=== PATIENT | male | born 1985 | race Caucasian/White ===

== ENCOUNTER 2016-03-15 16:26 | Emergency (ER) | payer SELFPAY ==
[2016-03-15] MEDS ORDERED: Lidocaine 2%-Epinephrine 1:100,000 20ml vial INF ONE (16:39)
[2016-03-15 16:43] VITALS: BP 124/65; PULSE 102; TEMP 97.9; BMI 30.4
--- NOTE | 2016-03-15 16:56 | EDPRACDOC ---
- General Information Stated Complaint: calf spider bite Time Seen by Provider: 03/15/16 16:30 Information Source: Patient Mode of Arrival:: Car Home Medications: Home Medications Cephalexin Monohydrate [Keflex] 500 mg PO Q6H #28 cap 02/05/16 Ibuprofen 600 mg PO TID #20 tablet 02/05/16 Cyclobenzaprine HCl [Flexeril] 10 mg PO TID PRN #20 tablet 02/13/16 Ketoprofen 50 mg PO BID PRN #20 capsule 02/13/16 Meloxicam 7.5 mg PO BID #20 tablet 03/15/16 Sulfamethoxazole/Trimethoprim [Bactrim Ds Tablet] 1 tab PO BID #20 tab 03/15/16 Allergies/Adverse Reactions: Allergies Allergy/AdvReac Type Severity Reaction Status Date / Time No Known Allergies Allergy Verified 02/13/16 00:43 - History of Present Illness Onset: 3-4 DAYS HPI: PT C/O ABSCESS TO RIGHT POSTERIOR CALF RED SWOLLEN AND PAINFUL. Location: Reports: Extremity (RIGHT POTERIOR CALF.) Relevent History Of: Reports: None Prior Abscess: Reports: Different Pain: Reports: Moderate Quality: Reports: Painful, Red Associated Signs & Symptoms: Reports: None ED Past Medical History - History Reviewed Yes Nurses notes reviewed and agree except as marked Travel Outside of [place] in the Last 3 Months?: No No Past Medical History: Yes Patient has no past medical history - Patient Medical History Psychological History: Denies: Depression - Social Medical History Smoking Status: Heavy tobacco smoker (5 or more cigarettes/day or daily pipe/ cigar) ETOH: None Substance Abuse: None Lives With: Other Lives In: Home EDM Review of Systems - Review of Systems ROS Negative Except as Marked: Yes All systems reviewed and were negative except as marked Constitutional: No Symptoms Reported. negative: Fever, Chills, Weakness, Fatigue, Loss of Appetite Eyes: No Symptoms Reported. negative: Redness, Blurred Vision, Double Vision, Discharge, Pain, Light Sensitive, Photophobia Ears: No Symptoms Reported. negative: Pain, Hearing Loss, Drainage, Ear Pulling Throat: No Symptoms Reported. negative: Pain, Swelling Nose: No Symptoms Reported. negative: Congestion, Bleeding, Discharge, Injection, Swelling, Deformity, Ecchymosis, Tender, Abrasion, Laceration Mouth: No Symptoms Reported. negative: Pain, Drooling Respiratory: No Symptoms Reported. negative: Cough, Brassy Cough, Barky Cough, Shortness of Breath, Wheezing, Hemoptysis Cardiovascular: No Symptoms Reported. negative: Chest Pain, Palpitations, Syncope, Edema, Orthopnea, PND, Skin Mottling, Cyanosis Gastrointestinal: No Symptoms Reported. negative: Pain, Constipation, Nausea, Vomiting, Diarrhea, Melena, Formula Intolerance Genitourinary: No Symptoms Reported. negative: Dysuria, Hematuria, Frequency, Discharge, Bleeding, Testicular Pain, Neurological: No Symptoms Reported. negative: Headache, Dizziness, Seizure, Numbness, Weakness, Speech Difficulty, Gait Difficulty Musculoskeletal: No Symptoms Reported. negative: Neck, Chestwall, Ribs, Back, Shoulder, Arm, Elbow, Forearm, Wrist, Hand, Pelvis, Hip, Femur, Knee, Leg, Ankle , Foot Integumentary: Other (ABSCESS POSTERIOR LEFT CALF). negative: Bruising, Itching , Rash, Wound Allergic/Immunologic: No Symptoms Reported. negative: Hives, Itching Hematologic: No Symptoms Reported. negative: Lymphadenopathy, Easy Bruising, Easy Bleeding Endocrine: No Symptoms Reported. negative: Weight Gain, Weight Loss Psychiatric: No Symptoms Reported. negative: Anxiety, Depression, Hallucinations, Insomnia, Suicidal - Physical Exam Constitutional: No apparent distress, Alert (Awake) Oriented to: Time, Person, Place Last recorded Vital Signs: Oxygen Pulse Oxygen Saturation O2 Device Oxygen Flow Rate Fraction of Inspired Oxygen ( FIO2) - HEENT Head: Normal ( normocephalic) Eye Exam: Normal (PERRL, EOMI, Sclera white) Oropharynx: Normal (Pharynx:Moist without exudate,Gums-no swelling) Tympanic Membrane: Normal ENT EAC: Normal TMJ: Normal Nose: No Symptoms Reported (septum midline) Neck: Normal (FROM, trachea at midline) - Respiratory/Cardiovascular Respiratory: Normal - CTA (BBS clear to auscultation without adventitious sounds ) Cardiovascular: Normal (RRR without murmur, gallop or rub) - GI Auscultation: Normal (NABS) Palpation: Normal (Soft,No rebound or guarding, non distended) Tenderness: Non tender Arevalo's Sign: Negative - Musculoskeletal Back: Normal (Non-Tender) Extremities: Normal (Normal tone, Pulses 2+ No cyanosis or edema, FROM) - Integumentary Skin: Normal, Warm, Dry, Other (ABSCESS LT POSTERIOR CALF) Lymphatics: Normal (no adenopathy) - Neurologic Memory Impaired: Normal Motor Function: Normal (Normal tone, Pulses 2+ No cyanosis or edema, FROM) Cranial Nerve: Normal (CN II-X11 intact sensation, strength 5/5) Cerebellar: Normal Mood Description: Normal Perception: Normal ED Abscess/Mass Exam - Integumentary Skin: Normal Mass: Red, Tender, Fluctuant, Extensive Cellulitis Lymphatics: Normal ED Procedures - Incision and Drainage Informed of risks, benefits and alternatives described.: Yes Informed Consent Signed: Verbal Indication: Painful Mass Anesthetic: Lidocaine, with Epi Prep: Betadine Blade Size: 11 Incised Site drained: Reports: Blood, Pus Incised site was: Not irrigated, Not Packed with Iodoform - Differential Diagnosis Abscess, Cellulitis Decision Time to Discharge: 17:03 - Departure Disposition: Home Condition: Stable Final Diagnosis: Abscess Instructions: Abscess (ED) Education/Counseling Given To: Patient Education/Counseling Given Regarding: Diagnosis, Treatment, Prognosis, Follow Up Referrals: None,No Provider [Primary Care Provider] - One Week Prescriptions: Meloxicam 7.5 mg PO BID #20 tablet Sulfamethoxazole/Trimethoprim [Bactrim Ds Tablet] 1 tab PO BID #20 tab Additional Instructions: RETURN IN 2 DAYS FOR WOUND CHECK OR SOONER FOR WORSE OR DIFFERENT SYMPTOMS.
== END 2016-03-15 17:25 | disposition home or self-care (01) ==
LOC: EDMC 16:26
DX: L02.415 Cutaneous abscess of right lower limb (principal)
CPT/HCPCS: 10060; 87070; 87075; 87077; 87186; 99282; J3490

== ENCOUNTER 2016-03-18 17:42 | Emergency (ER) | payer SELFPAY ==
[2016-03-18 17:54] VITALS: BP 134/72; PULSE 80; TEMP 97.8
[2016-03-18 17:55] VITALS: BMI 30.9
--- NOTE | 2016-03-18 18:05 | EDPRACDOC ---
- General Information Stated Complaint: WOUND RECHECK Time Seen by Provider: 03/18/16 17:58 Home Medications: Home Medications Cephalexin Monohydrate [Keflex] 500 mg PO Q6H #28 cap 02/05/16 Ibuprofen 600 mg PO TID #20 tablet 02/05/16 Cyclobenzaprine HCl [Flexeril] 10 mg PO TID PRN #20 tablet 02/13/16 Ketoprofen 50 mg PO BID PRN #20 capsule 02/13/16 Meloxicam 7.5 mg PO BID #20 tablet 03/15/16 Sulfamethoxazole/Trimethoprim [Bactrim Ds Tablet] 1 tab PO BID #20 tab 03/15/16 Allergies/Adverse Reactions: Allergies Allergy/AdvReac Type Severity Reaction Status Date / Time No Known Allergies Allergy Verified 02/13/16 00:43 - History of Present Illness Onset: 4 DAYS Wound Location: RIGHT POSTERIOR LEG Wound Discharge: Clear Previously Treated In: [facility] Current Wound Treatment: Antibiotics, Other (I&D) Associated Signs and Symptoms: None ED Past Medical History - History Reviewed Yes Nurses notes reviewed and agree except as marked - Patient Medical History Psychological History: Denies: Depression - Social Medical History Smoking Status: Never smoker EDM Review of Systems - Review of Systems ROS Negative Except as Marked: Yes All systems reviewed and were negative except as marked Constitutional: No Symptoms Reported Respiratory: No Symptoms Reported Cardiovascular: No Symptoms Reported Gastrointestinal: No Symptoms Reported Neurological: No Symptoms Reported Musculoskeletal: Leg Integumentary: Wound - Physical Exam Constitutional: Alert (Awake), No apparent distress Oriented to: Time, Person, Place Last recorded Vital Signs: Last Vital Signs Temp 97.8 F 03/18/16 17:54 Pulse 80 03/18/16 17:54 Resp 20 03/18/16 17:54 BP 134/72 03/18/16 17:54 Pulse Ox 95 03/18/16 17:54 Oxygen Pulse Oxygen Saturation 95 O2 Device Oxygen Flow Rate Fraction of Inspired Oxygen ( FIO2) - HEENT Head: Normal Eye Exam: Normal Neck: Normal, Denies Pain, Midline - Respiratory/Cardiovascular Respiratory: Normal - CTA Cardiovascular: Normal - GI Palpation: Normal Tenderness: Non tender - Musculoskeletal Back: Normal Extremities: Other (NOTED WELL HEALING RECENT I&D TO RIGHT POSTERIOR THIGH; CELLULITIS IS MUCH LESS COMPARED TO THE OLD BODY MARKER) - Integumentary Skin: Normal Lymphatics: Normal - Neurologic Cerebellar: Normal Mood Description: Normal Thought: Coherent Perception: Normal ED Wound Check Exam - Wound Detail Wound Location: RIGHT POSTERIOR THIGH Healing: Well Discharge: None Erythema: Localized to Wound Edges Decision Time to Discharge: 18:05 - Departure Disposition: Home Condition: Good Final Diagnosis: Wound check, abscess Instructions: MRSA (Methicillin Resistant Staphylococcus Aureus) (ED) Education/Counseling Given To: Patient Education/Counseling Given Regarding: Diagnosis, Treatment, Follow Up Referrals: Jayme Tejeda MD [Primary Care Provider] - One Week Additional Instructions: CONTINUE BACTRIM REGIMEN. HIBICLENS SOAP for treatment of MRSA Use as a body wash for one week. Repeat every 4 months. If a sore develops, use the Hibiclens soap to clean it daily until it goes away. Hibiclens is in a teal colored bottle and is over the counter at most drug stores ([facility], etc)
== END 2016-03-18 18:06 | disposition home or self-care (01) ==
LOC: ED 17:42
DX: L02.415 Cutaneous abscess of right lower limb (principal)
CPT/HCPCS: 99282

== ENCOUNTER 2016-03-26 14:45 | Emergency (ER) | payer SELFPAY ==
[2016-03-26 14:57] VITALS: BMI 31.0
[2016-03-26] MEDS ORDERED: CLINDAMYCIN 150 MG CAP PO ONE (15:21)
--- NOTE | 2016-03-26 15:24 | EDPRACDOC ---
- General Information Chief Complaint: Wound Stated Complaint: WOUND Time Seen by Provider: 03/26/16 14:59 Information Source: Patient Mode of Arrival:: Car Home Medications: Home Medications Cephalexin Monohydrate [Keflex] 500 mg PO Q6H #28 cap 02/05/16 Ibuprofen 600 mg PO TID #20 tablet 02/05/16 Cyclobenzaprine HCl [Flexeril] 10 mg PO TID PRN #20 tablet 02/13/16 Ketoprofen 50 mg PO BID PRN #20 capsule 02/13/16 Meloxicam 7.5 mg PO BID #20 tablet 03/15/16 Sulfamethoxazole/Trimethoprim [Bactrim Ds Tablet] 1 tab PO BID #20 tab 03/15/16 Clindamycin HCl 300 mg PO TID #21 capsule 03/26/16 Doxycycline [Vibramycin] 100 mg PO BID #14 tab 03/26/16 Mupirocin 22 gm TP Q8H #22 oint...g. 03/26/16 Allergies/Adverse Reactions: Allergies Allergy/AdvReac Type Severity Reaction Status Date / Time No Known Allergies Allergy Verified 03/26/16 14:53 - History of Present Illness Onset: 3 weeks HPI: Pt c/o R posterior calf wound x 3 weeks. pt states finished 10 day course of Bactrim and area is still draining and red. C/o dizziness. Denies fever, red streaking, cp, sob, abd pain, n/v. Pt request doxycycline if possible Location: Reports: Extremity Relevent History Of: Reports: None Prior Abscess: Reports: Same Pain: Reports: None Quality: Reports: Draining, Red Associated Signs & Symptoms: Reports: None ED Past Medical History - History Reviewed Yes Nurses notes reviewed and agree except as marked - Patient Medical History Psychological History: Denies: Depression - Social Medical History Smoking Status: Current some day smoker ETOH: None Substance Abuse: None EDM Review of Systems - Review of Systems Constitutional: No Symptoms Reported. negative: Fever, Chills, Weakness, Fatigue, Loss of Appetite Ears: No Symptoms Reported. negative: Pain, Hearing Loss, Drainage, Ear Pulling Throat: No Symptoms Reported. negative: Pain, Swelling Nose: Congestion Mouth: No Symptoms Reported. negative: Pain, Drooling Respiratory: No Symptoms Reported. negative: Cough, Brassy Cough, Barky Cough, Shortness of Breath, Wheezing, Hemoptysis Cardiovascular: No Symptoms Reported. negative: Chest Pain, Palpitations, Syncope, Edema, Orthopnea, PND, Skin Mottling, Cyanosis Gastrointestinal: No Symptoms Reported. negative: Pain, Constipation, Nausea, Vomiting, Diarrhea, Melena, Formula Intolerance Genitourinary: No Symptoms Reported. negative: Dysuria, Hematuria, Frequency, Discharge, Bleeding, Testicular Pain, Neurological: Dizziness Musculoskeletal: No Symptoms Reported. negative: Neck, Chestwall, Ribs, Back, Shoulder, Arm, Elbow, Forearm, Wrist, Hand, Pelvis, Hip, Femur, Knee, Leg, Ankle , Foot Integumentary: Wound Allergic/Immunologic: No Symptoms Reported. negative: Hives, Itching Hematologic: No Symptoms Reported. negative: Lymphadenopathy, Easy Bruising, Easy Bleeding Psychiatric: No Symptoms Reported. negative: Anxiety, Depression, Hallucinations, Insomnia, Suicidal - Physical Exam Constitutional: Alert Oriented to: Time, Person, Place Last recorded Vital Signs: Last Vital Signs Temp 98.0 F 03/26/16 14:54 Pulse 75 03/26/16 14:54 Resp 18 03/26/16 14:54 BP 152/75 03/26/16 14:54 Pulse Ox 97 03/26/16 14:54 Oxygen Pulse Oxygen Saturation 97 O2 Device Room Air Oxygen Flow Rate Fraction of Inspired Oxygen ( FIO2) - HEENT Head: Normal ( normocephalic) Eye Exam: Normal (PERRL, EOMI, Sclera white) - Respiratory/Cardiovascular Respiratory: Normal - CTA (BBS clear to auscultation without adventitious sounds ) Cardiovascular: Normal (RRR without murmur, gallop or rub) - Musculoskeletal Back: Normal (Non-Tender) Extremities: Normal (Normal tone, Pulses 2+ No cyanosis or edema, FROM) - Integumentary Skin: Normal, Warm, Dry Lymphatics: Normal (no adenopathy) - Neurologic Memory Impaired: Normal Motor Function: Normal (Normal tone, Pulses 2+ No cyanosis or edema, FROM) Mood Description: Normal Perception: Normal ED Abscess/Mass Exam - Integumentary Skin: Normal, Warm, Dry Mass: Red, Local Cellulitis Lymphatics: Normal Body Image: 1 - erythema with open wound - Differential Diagnosis Abscess, Cellulitis - Results 03/26/16 15:25 03/26/16 15:25 Lab Results: 03/26/16 16:16 Laboratory Results - last 24 hr 03/26/16 03/26/16 03/26/16 15:25 15:25 15:25 WBC 8.3 RBC 5.03 Hgb 16.6 Hct 47.8 MCV 95 H MCH 33.1 H MCHC 34.9 RDW 12.3 Plt Count 275 MPV 8.7 Neut % (Auto) 47.5 Lymph % (Auto) 34.9 [place] % (Auto) 10.8 H Eos % (Auto) 6.2 H Baso % (Auto) 0.6 Absolute Neuts (auto) 3.90 Absolute Lymphs (auto) 2.82 Sodium 139 Potassium 4.2 Chloride 99 Carbon Dioxide 29 Anion Gap 15 BUN 17 Creatinine 1.30 H Estimated GFR (MDRD) > 60 Glucose 87 Calculated Osmolality 269 L Lactic Acid 1.1 Calcium 9.8 Total Bilirubin 0.6 AST 46 ALT 79 H Alkaline Phosphatase 68 Total Protein 8.6 H Albumin 4.9 Decision Time to Discharge: 16:16 - Departure Disposition: Home Condition: Good Final Diagnosis: Recurrent cellulitis of lower leg Instructions: Cellulitis (ED), Acute Wound Care (ED) Education/Counseling Given To: Patient Education/Counseling Given Regarding: Diagnosis, Treatment, Follow Up Referrals: Jayme Tejeda MD [Primary Care Provider] - One Week Prescriptions: New Clindamycin HCl 300 mg PO TID #21 capsule Doxycycline [Vibramycin] 100 mg PO BID #14 tab Mupirocin 22 gm TP Q8H #22 oint...g. No Action Cephalexin Monohydrate [Keflex] 500 mg PO Q6H #28 cap Ibuprofen 600 mg PO TID #20 tablet Cyclobenzaprine HCl [Flexeril] 10 mg PO TID PRN #20 tablet PRN Reason: Muscle Spasms Ketoprofen 50 mg PO BID PRN #20 capsule PRN Reason: Pain Meloxicam 7.5 mg PO BID #20 tablet Sulfamethoxazole/Trimethoprim [Bactrim Ds Tablet] 1 tab PO BID #20 tab Additional Instructions: Follow up with wound clinic. Return for worse or different symptoms.
[2016-03-26 15:38] LABS: AUTOMATED BASOPHIL 0.6 % (0-2); AUTOMATED EOSINOPHIL 6.2 % (0-5); AUTOMATED LYMPH 34.9 % (17-44); AUTOMATED MONOCYTE 10.8 % (3-10); AUTOMATED NEUTROPHIL 47.5 % (45-76); MPV 8.7 fL (7.4-10.4)
[2016-03-26 15:56] LABS: BLOOD UREA NITROGEN 17 MG/DL (9-20); CALCIUM 9.8 MG/DL (8.4-10.2); CALCULATED OSMOLALITY 269 MOs/Kg (270-290); CHLORIDE 99 mEq/L (98-107); GLUCOSE 87 mg/dL (70-99); SODIUM LEVEL 139 mEq/L (137-146); TOTAL PROTEIN 8.6 G/DL (6.3-8.2)
[2016-03-26 16:14] VITALS: BP 127/83; PULSE 64; TEMP 97.7
== END 2016-03-26 16:29 | disposition home or self-care (01) ==
LOC: ED 14:45 → EDMC 16:29
DX: L03.119 Cellulitis of unspecified part of limb (principal)
CPT/HCPCS: 36415; 80053; 83605; 85025; 87040; 99282; J3490